=== PATIENT | male | born 1980 | race Caucasian/White ===

== ENCOUNTER 2019-02-17 12:44 | Emergency (ER) | payer SELFPAY ==
[2019-02-17 13:39] LABS: BASOPHILS % (AUTO) 0.2 %; EOSINOPHILS % (AUTO) 0.1 %; HGB - HEMOGLOBIN 14.9 g/dL (14.0-18.0); LYMPHOCYTES # (AUTO) 0.7 10^3/uL (1.5-3.5); LYMPHOCYTES % (AUTO) 5.3 %; MEAN CORPUSCULAR HEMOGLOBIN 32.5 pg (27.0-31.0); MEAN CORPUSCULAR HGB CONC 36.2 g/dL (32.0-36.0); MEAN PLATELET VOLUME 9.7 fL (7.4-11.4); MONOCYTES # (AUTO) 0.5 10^3/uL (0.0-1.0); MONOCYTES % (AUTO) 4.1 %; NEUTROPHILS # (AUTO) 11.7 10^3/uL (1.5-6.6); NEUTROPHILS % (AUTO) 90.1 %; PLT - PLATELET COUNT 207 10^3/uL (130-450); RED BLOOD COUNT 4.58 10^6/uL (4.70-6.10); RED CELL DISTRIBUTION WIDTH 12.6 % (12.0-15.0); WHITE BLOOD COUNT 12.9 x10^3/uL (4.8-10.8)
[2019-02-17] MEDS ORDERED: SODIUM CHLORIDE 0.9% 1,000 ML IV ONE ×2 (13:49→15:09)
[2019-02-17 13:59] LABS: ALBUMIN 4.7 g/dL (3.2-5.5); ALBUMIN/GLOBULIN RATIO 1.6 (1.0-2.2); BILIRUBIN,TOTAL 1.2 mg/dL (0.2-1.0); CALCIUM 9.1 mg/dL (8.5-10.3); CREATININE 0.6 mg/dL (0.6-1.2); TOTAL PROTEIN 7.7 g/dL (6.7-8.2)
[2019-02-17 14:45] LABS: BILIRUBIN,URINE NEGATIVE (NEGATIVE); GLUCOSE, URINE (UA) NEGATIVE (NEGATIVE); KETONES,URINE (UA) >=80 mg/dL (NEGATIVE); LEUKOCYTE ESTERASE, URINE NEGATIVE (NEGATIVE); NITRITE,URINE NEGATIVE (NEGATIVE); OCCULT BLOOD,URINE TRACE-INTA (NEGATIVE); PH,URINE 5.5 PH (5.0-7.5); PROTEIN,URINE NEGATIVE (NEGATIVE); UROBILINOGEN,URINE 0.2 (NORMAL) E.U./dL (NORMAL)
[2019-02-17] MEDS ORDERED: IOVERSOL 320 100 ML VIAL IVP ONE ×2 (14:48→14:57)
[2019-02-17 14:49] LABS: CLARITY,URINE CLEAR (CLEAR)
--- NOTE | 2019-02-17 15:15 | ED Physician Documentation ---
PD HPI ABD PAIN - Stated complaint Stated Complaint: ABD PX - Chief complaint Chief Complaint: Abd Pain - History obtained from History obtained from: Patient (Through wreath maker.) - History of Present Illness Timing - onset: Today Timing - details: Gradual onset Quality: Pain ("dolor") Location: RLQ Associated symptoms: No: Fever, Vomiting, Diarrhea, Dysuria Similar symptoms before: Has not had sx before - Additional information Additional information: The patient is a 38-year-old male who presents with right lower quadrant abdominal pain that started when he awoke this morning and has been getting progressively worse throughout the day. He does not speak Gabonese, so history is obtained with the assistance of an wreath maker. He denies fever, vomiting, diarrhea, or dysuria. His last meal was about 10:30 AM. He denies history of similar symptoms in the past. He has had no abdominal surgery. Review of Systems Constitutional: denies: Fever Nose: denies: Congestion Cardiac: denies: Chest pain / pressure Respiratory: denies: Dyspnea, Cough GI: reports: Abdominal Pain. denies: Vomiting, Diarrhea : denies: Dysuria Skin: denies: Rash Musculoskeletal: denies: Back pain Neurologic: denies: Headache PD PAST MEDICAL HISTORY - Past Medical History Cardiovascular: None Endocrine/Autoimmune: None - Past Surgical History Past Surgical History: No - Allergies Allergies/Adverse Reactions: Allergies Allergy/AdvReac Type Severity Reaction Status Date / Time No Known Drug Allergies Allergy Verified 02/17/19 12:48 - Social History Does the pt smoke?: No PD ED PE NORMAL - Vitals Vital signs reviewed: Yes (normal) - General General: Alert and oriented X 3, Well developed/nourished - HEENT HEENT: Atraumatic, Moist mucous membranes - Neck Neck: No adenopathy, No JVD - Cardiac Cardiac: RRR, No murmur - Respiratory Respiratory: No respiratory distress, Clear bilaterally - Abdomen Abdomen: Normal bowel sounds, Soft, No organomegaly, Other (Tenderness to palpation in the right lower quadrant, without rebound or guarding.) - Back Back: No CVA TTP - Derm Derm: No rash - Extremities Extremities: No edema, No calf tenderness / cord - Neuro Neuro: Alert and oriented X 3, No motor deficit, Normal speech Results - Vitals Vitals: Vital Signs - 24 hr 02/17/19 02/17/19 12:48 14:00 Temperature 36.5 C Heart Rate 76 70 Respiratory 16 16 Rate Blood Pressure 118/62 116/68 O2 Saturation 99 98 Oxygen O2 Source Room air - Labs Labs: Laboratory Tests 02/17/19 02/17/19 02/17/19 13:33 13:33 14:15 WBC 12.9 H RBC 4.58 L Hgb 14.9 Hct 41.2 L MCV 90.0 MCH 32.5 H MCHC 36.2 H RDW 12.6 Plt Count 207 MPV 9.7 Neut # (Auto) 11.7 H Lymph # (Auto) 0.7 L [place] # (Auto) 0.5 Eos # (Auto) 0.0 Baso # (Auto) 0.0 Absolute Nucleated RBC 0.00 Nucleated RBC % 0.0 Sodium 139 Potassium 3.5 Chloride 104 Carbon Dioxide 25 Anion Gap 10.0 BUN 15 Creatinine 0.6 Estimated GFR (MDRD) 152 Glucose 109 H Calcium 9.1 Total Bilirubin 1.2 H AST 25 ALT 26 Alkaline Phosphatase 84 Total Protein 7.7 Albumin 4.7 Globulin 3.0 Albumin/Globulin Ratio 1.6 Lipase 21 L Urine Color YELLOW Urine Clarity CLEAR Urine pH 5.5 Ur Specific [place] >=1.030 H Urine Protein NEGATIVE Urine Glucose (UA) NEGATIVE Urine Ketones >=80 H Urine Occult Blood TRACE-INTA Urine Nitrite NEGATIVE Urine Bilirubin NEGATIVE Urine Urobilinogen 0.2 (NORMAL) Ur Leukocyte Esterase NEGATIVE Ur Microscopic Review NOT INDICATED Urine Culture Comments NOT INDICATED - Rads (name of study) CT abd/pelvis Radiology: Prelim report reviewed, EMP read contemporaneously, See rad report (Acute unruptured appendix.) PD MEDICAL DECISION MAKING - ED course Complexity details: reviewed results, re-evaluated patient, considered differential, d/w patient, d/w data center consultant ED course: The patient's presentation is most consistent with acute appendicitis, with right lower quadrant abdominal tenderness, elevated white count of 12.9, and CT scan evidence. There is no evidence of rupture. Treatment in the emergency department included administration of normal saline IV, Zofran 4 mg IV, and Zosyn 4.5 g IV. I discussed his condition with Dr. Maloney who plans operative intervention. Departure - Departure Disposition: ED Transfer to [facility] Clinical Impression: Appendicitis Qualifiers: Appendicitis type: acute appendicitis Acute appendicitis type: unspecified acute appendicitis type Qualified Code(s): K35.80 - Unspecified acute appendicitis Condition: Stable
--- NOTE | 2019-02-17 15:17 | CT Report ---
Reason: RLQ pain and tenderness Procedure Date: 02/17/2019 Accession Number: [id number] / [id number] Procedure: CT - Abdomen/Pelvis W CPT Code: FULL RESULT: EXAM: CT ABDOMEN AND PELVIS EXAM DATE: 02/17/2019 02:56 PM. CLINICAL HISTORY: RLQ pain and tenderness. COMPARISONS: None. TECHNIQUE: Routine helical CT imaging was performed through the abdomen and pelvis. IV contrast: OPTI 320 90ML. Enteric contrast: No. Reconstructions: Coronal and sagittal. In accordance with CT protocol optimization, one or more of the following dose reduction techniques were utilized for this exam: automated exposure control, adjustment of mA and/or KV based on patient size, or use of iterative reconstructive technique. FINDINGS: Lung Bases: Unremarkable. Liver: Normal. No masses. Gallbladder/Bile Ducts: Unremarkable. Spleen: Normal. Pancreas: Normal. Adrenal Glands: Normal. Kidneys: Normal. No masses or hydronephrosis. Peritoneal Cavity/Bowel: Fluid-filled right upper quadrant appendix with enhancing wall and hazy infiltration of surrounding fat. Trace localized free fluid. No significant free fluid. No free air, bowel dilation, or lymphadenopathy. The appendix is well visualized and normal. Pelvic Organs: Normal. The bladder and visualized pelvic organs are within normal limits. Vasculature: No aneurysms or other significant abnormality. Bones: No significant abnormality. Other: None. IMPRESSION: Acute unruptured appendicitis. RADIA
[2019-02-17] MEDS ORDERED: ONDANSETRON 4 MG/2 ML VIAL IVP STA (15:19)
[2019-02-17] MEDS ORDERED: PIPERACILLIN/TAZOBACTAM 4.5 GM in SODIUM CHLORIDE 0.9% MINIBAG 100 ML IV STA (15:19)
--- NOTE | 2019-02-17 17:23 | ANESTHESIA ---
Pre-Anesthesia VS, & Labs - Diagnosis Appendicits - Procedure Lap Appy Vital Signs: Temp Pulse Resp BP Pulse Ox 36.5 C 76 16 118/62 99 02/17/19 12:48 02/17/19 12:48 02/17/19 12:48 02/17/19 12:48 02/17/19 12:48 Height 5 ft 6 in Weight (kg) 54.7 kg Body Mass Index 19.4 - Lab Results Current Lab Results: Laboratory Tests 02/17/19 13:33: Sodium 139, Potassium 3.5, Chloride 104, Carbon Dioxide 25, Anion Gap 10.0, BUN 15, Creatinine 0.6, Estimated GFR (MDRD) 152, Glucose 109 H, Calcium 9.1, Total Bilirubin 1.2 H, AST 25, ALT 26, Alkaline Phosphatase 84, Total Protein 7.7, Albumin 4.7, Globulin 3.0, Albumin/Globulin Ratio 1.6, Lipase 21 L 02/17/19 13:33: WBC 12.9 H, RBC 4.58 L, Hgb 14.9, Hct 41.2 L, MCV 90.0, MCH 32.5 H, MCHC 36.2 H, RDW 12.6, Plt Count 207, MPV 9.7, Neut # (Auto) 11.7 H, Lymph # (Auto) 0.7 L, [place] # (Auto) 0.5, Eos # (Auto) 0.0, Baso # (Auto) 0.0, Absolute Nucleated RBC 0.00, Nucleated RBC % 0.0 Fish Bones: 02/17/19 13:33 02/17/19 13:33 Home Medications and Allergies Active Medications Sodium Chloride (Normal Saline 0.9%) 1,000 mls @ 250 mls/hr IV .Q4H ONE Stop: 02/17/19 19:08 Allergies/Adverse Reactions: Allergies Allergy/AdvReac Type Severity Reaction Status Date / Time No Known Drug Allergies Allergy Verified 02/17/19 12:48 Anes History & Medical History - Anesthetic History Anesthesia Complications: reports: No previous complications Family history of Anesthesia Complications: Denies Family history of Malignant Hyperthermia: Denies - Medical History Pulmonary: reports: None Gastrointestinal: reports: None Urinary: reports: None Neuro: reports: None Musculoskeletal: reports: None Endocrine/Autoimmune: reports: None Blood Disorders: reports: None Skin: reports: None Smoking Status: Light tobacco smoker Psychosocial: reports: No issues indicated Exam General: Alert, Oriented x3, Cooperative Dental: WNL Mouth Openin Fingerbreadth Neck Mobility: Normal Mallampati classification: I Thyromental Distance: 4-6 cm Respiratory: Lungs clear Cardiovascular: Regular rate, No murmurs Plan Anesthesia Type: General Consent for Procedure(s) Verified and Reviewed: No Code Status: Attempt Resuscitation ASA classification: 2-Mild systemic disease Is this case an emergency?: Yes
[2019-02-17 19:36] VITALS: BP 90/54
--- NOTE | 2019-02-17 20:58 | ED Physician Documentation ---
ED Addendum - Addendum Addendum: 02/17/19 20:57 See 's note. Briefly this is a young man with appendicitis. He refused surgery and is signing out AGAINST MEDICAL ADVICE. I did not personally see or evaluate this patient, Dr. Prater spent a long time talking with him. I did write a prescription for antibiotics.
--- NOTE | 2019-02-17 21:22 | CONSULTATION NOTE ---
Referring Provider Name of Referring Provider:: Dr. Jimenez Consult Date: 02/17/19 Chief Complaint - Chief Complaint Chief Complaint: Right lower quadrant pain History of Present Illness - Admitted From Admitted From:: Not admittedpatient decided to go home - History Obtained From Records Reviewed: Yes History obtained from: Patient with the aid of an weight clerk (Marina #[id number]) Exam Limitations: Patient is Somali-speaking but an weight clerk was used, see above - History of Present Illness HPI Comment/Other: Patient is a very pleasant 38-year-old male who is Somali-speaking and the entire interview was performed with an weight clerk (Marina #[id number]). Please note that his and his 2 young daughters were present for the entire interview and examination. Patient states that his pain started earlier this morning and quickly localized to the right lower quadrant. The pain was associated with some nausea and was worsened with motion. It is worse when this area is palpated. It got to the point where he presented to our emergency department. There is no vomiting, constipation, or diarrhea. He has never had these symptoms previously. There is some anorexia. History - Past Medical History Cardiovascular: reports: None Respiratory: reports: None Neuro: reports: None Endocrine/Autoimmune: reports: None GI: reports: None : reports: None Musculoskeletal: reports: None Derm: reports: None Meds/Allgy - Home Medications Home Medications: Ambulatory Orders Medication Instructions Recorded Confirmed Amox/Clav 875/125 [Augmentin] 1 each PO Q12H #20 tablet 02/17/19 - Allergies Allergies/Adverse Reactions: Allergies Allergy/AdvReac Type Severity Reaction Status Date / Time No Known Drug Allergies Allergy Verified 02/17/19 12:48 Review of Systems - Constitutional Constitutional: denies: Fatigue - Eyes Eyes: denies: Pain - Ears, Nose & Throat Ears, Nose & Throat: denies: Ear pain - Cardiovascular Cariovascular: denies: Irregular heart rate, Chest pain - Respiratory Respiratory: denies: Cough - Gastrointestinal Gastrointestinal: reports: Abdominal pain, Nausea. denies: Abdominal distention, Constipation, Diarrhea, Rectal bleeding, Vomiting - Genitourinary Genitourinary: denies: Dysuria Exam - Vital Signs Reviewed Vital Signs: Yes Vital Signs: Vital Signs x48h Temp Pulse Resp BP Pulse Ox 02/17/19 19:34 37.4 C 67 17 90/54 L 100 02/17/19 17:00 74 16 112/70 02/17/19 14:00 70 16 116/68 98 - Physical Exam General Appearance: positive: No acute distress Eyes Bilateral: positive: No lid inflammation, Conjunctivae nml, No scleral icterus ENT: positive: Dry mucous membranes Neck: positive: Trachea midline Respiratory: positive: Chest non-tender, Breath sounds nml Cardiovascular: positive: Regular rate & rhythm Abdomen: positive: Nml bowel sounds, Tenderness (In the right lower quadrant with deep palpation. No peritoneal findings.) Skin: positive: Color nml Extremities: positive: Non-tender, Nml appearance Neurologic/Psychiatric: positive: Oriented x3, Motor nml, Sensation nml, Mood/affect nml Conclusion/Plan - Diagnosis Diagnosis: Likely acute appendicitis - Plan Plan: After a 45-minute conversation with the patient explaining the pros and cons to surgical intervention for acute appendicitis as well as explaining that it is a standard of care in the [facility] to operate the patient decided to go home and think about it. I explained to him that should the appendix rupture that the clinical course is much more complicated and would necessitate hospitalization whereas early removal of an infected appendix usually results and patient going home the same day. Despite this the patient did not wish to have surgery today. I explained the pathophysiology to him as he was trying to compare the appendix to his 's gallbladder. I explained that they have to widely different functions. The patient sought to have me definitively say whether or not he was going to get better or worse and I explained to him that this is simply not possible. I certainly wished for him to get better but if he got worse I explained to him that the risk to him would be higher, the surgery would be more difficult, and he would be facing a much longer hospitalization. I made it very clear that it was my strong recommendation that he have surgery. This is all explained to him with the aid of an weight clerk and he vocalized an understanding and thanked me for my time. I explained to him that should he come back to the emergency department during this weekend I have the on-call physician and he would likely be seeing me. I asked him to contact us with any surgical questions and or concerns and he stated that he would. Again, this was done with the aid of the weight clerk. 45 minutes of [id number] time spent with the patient, the majority of which was spent in discussion, coordination of care, and completion of the requisite paperwork Julian disclaimer: This document was created in part using voice recognition technology. Because of the inherent limitations of the system ([employer] user manual states that the licensee understands that speech recognition is a statistical process and that recognition errors are inherent in the process), occasional same sounding word substitutions and grammatical errors do occur and persist despite proofreading. Please read this document for context. - Lab Results Lab results reviewed: Yes Fish Bones: 02/17/19 13:33 02/17/19 13:33 - Diagnostic Imaging Results Diagnostic Imaging Results: positive: Final report reviewed, Read independently, Other (Please note that the formal reading was a little bit odd in the sense that an abnormal appendix is described and then the appendix is described as normal in the same reading.)
== END 2019-02-17 21:32 | disposition left against medical advice (07) ==
LOC: ED 12:44
DX: K35.80 Unspecified acute appendicitis (principal); Z53.20 Procedure and treatment not carried out because of patient's decision for unspecified reasons
CPT/HCPCS: 36415; 74177; 80053; 81003; 83690; 85025; 96365; 96375; 99283; 99284; Q9967; 81001; 87086